=== PATIENT | male | born 1935 | race Caucasian/White ===

== ENCOUNTER 2016-11-24 09:34 | Day surgery (SDC) | payer OTHER ==
[2016-11-24] MEDS ORDERED: LIDOCAINE 1% 2 ML INJ ONE (10:04)
[2016-11-24] MEDS ORDERED: LR 1,000 ML IV ONE (10:07)
[2016-11-24] MEDS ORDERED: LIDOCAINE 1% 2 ML INJ ID PRN (10:07)
[2016-11-24 10:20] VITALS: PULSE 68
--- NOTE | 2016-11-24 11:17 | PDANEPAE ---
ANE History of Present Illness EGD/EUS ANE Past Medical History - Cardiovascular History Hx Hypertension: Yes Hx Arrhythmias: No Hx Chest Pain: No Hx Coronary Artery / Peripheral Vascular Disease: Yes Hx CHF / Valvular Disease: No Hx Palpitations: No Cardiovascular History Comment: HTN. HI 05/24/13 WITH CARDIAC STENT PLACED. 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 TOTAL PROSTATECTOMY 2006 - Liver History Hx Hepatic Disorders: No - Neurological & Psychiatric Hx Hx Neurological and Psychiatric Disorders: No - Cancer History Hx Cancer: Yes Cancer History Comment: COLON. PROSTATE - Congenital Disorder History Hx Congenital Disorders: No - GI History Hx Gastrointestinal Disorders: Yes Gastrointestinal History Comment: HX OF EGD/ EUS. HX OF JOSE ALFREDO-COLECTOMY - Other Health History Other Health History: WEARS READERS - Chronic Pain History Chronic Pain: No - Surgical History Prior Surgeries: CARDIAC STENT PLACED 2013 AFTER HI. BACK SURGERY 2011ISH. 12/04 EGD/ EUS WITH FERNANDO. RIGHT KALPA[place]. TOTAL PROSTATECTOMY 2006. JOSE ALFREDO COLECTOMY ANE Review of Systems Review of Systems: - Exercise capacity METS (RN): 4 METS ANE Patient History - Allergies Allergies/Adverse Reactions: No Known Allergies Allergy (Verified 11/03/16 12:59) - Home Medications Home medications: home medication list seen and reviewed Home Medications: Aspirin 81mg (*) 11/03/16 [Last Taken 11/17/16] Candesartan Cilexetil 11/03/16 [Last Taken 11/24/16] Herbals/Supplements -Info Only 11/03/16 [Last Taken Unknown] IBUPROFEN PRN 11/03/16 [Last Taken Unknown] Omeprazole 11/03/16 [Last Taken 11/23/16] - NPO status NPO Status: no food or drink >8 hours (pills at 0330) NPO Since - Liquids (Date): 11/24/16 NPO Since - Liquids (Time): 03:30 NPO Since - Solids (Date): 11/23/16 NPO Since - Solids (Time): 18:30 - Anes Hx Anes Hx: no prior problems - Smoking Hx Smoking Status: Former smoker (quit 50 years ago) - Alcohol Use Alcohol Use: Occasionally - Family Anes Hx Family Anes Hx: none Family Hx Anesthesia Complications: NONE ANE Labs/Vital Signs - Vital Signs Blood Pressure: 150/101 Heart Rate: 68 Respiratory Rate: 16 O2 Sat (%): 93 Height: 182.88 cm Weight: 95.254 kg ANE Physical Exam - Airway Mallampati Score: Class 2 Mouth exam: normal dental/mouth exam - Pulmonary Pulmonary: no respiratory distress - Cardiovascular Cardiovascular: regular rate and rhythym - ASA Status ASA Status: II ANE Anesthesia Plan Anesthesia Plan: GA with mask (R/B/A explained and agrees to proceed.)
--- NOTE | 2016-11-24 11:17 | PDGENHP ---
History & Physical Chief Complaint: subepithelial lesion History of Present Illness: 81 year old male presents for evaluation of subepithelial lesion and c/o of reflux Pertinent Past, Social, Family History: PMHx: HTN, CRC. SHx: prostatectomy. FMHx: No CRC Relevant Physical Exam: HEENT: anicteric. CV: RRR +s1s2. Lungs: CTAB Cardiorespiratory Assessment: ASA 2
[2016-11-24] MEDS ORDERED: INDOMETHACIN 50 MG SUPP PR PRN (11:18)
[2016-11-24] MEDS ORDERED: fentaNYL 100 MCG/2 ML INJ ONE (11:20)
[2016-11-24] MEDS ORDERED: ONDANSETRON 4 MG/2 ML VIAL ONE (11:21)
[2016-11-24] MEDS ORDERED: DEXAMETHASONE 4 MG/ML VIAL ONE (11:21)
[2016-11-24] MEDS ORDERED: LIDOCAINE 2% 100 MG/5 ML SYR ONE (11:21)
[2016-11-24] MEDS ORDERED: PROPOFOL/EMULSION 500 MG/50 ML BOTTLE IV ONE (11:21)
[2016-11-24] MEDS ORDERED: NS 500 ML IV SCH (11:30)
[2016-11-24] MEDS ORDERED: LIDOCAINE 2% JELLY 5 ML TUBE ONE (11:34)
[2016-11-24] MEDS ORDERED: ALBUTEROL 3 ML DEYVIAL IH PRN (11:38)
[2016-11-24] MEDS ORDERED: MEPERIDINE 25 MG/ML SYR IVP PRN (11:38)
[2016-11-24] MEDS ORDERED: LABETALOL HCL 50 MG/10 ML SYR IVP PRN (11:38)
[2016-11-24] MEDS ORDERED: ONDANSETRON 4 MG/2 ML VIAL IVP PRN (11:38)
[2016-11-24] MEDS ORDERED: ACETAMINOPHEN 500 MG TAB PO PRN (11:38)
[2016-11-24] MEDS ORDERED: fentaNYL 100 MCG/2 ML INJ IVP PRN (11:38)
[2016-11-24] MEDS ORDERED: DEXAMETHASONE 4 MG/ML VIAL IVP PRN (11:38)
[2016-11-24] MEDS ORDERED: LR 500 ML IV PRN (11:38)
[2016-11-24] MEDS ORDERED: NALOXONE HCL 0.4 MG/ML INJ IVP PRN (11:38)
--- NOTE | 2016-11-24 12:02 | POSTANESTH ---
Post Anesthetic Evaluation Cardiovascular Status: Normal, Stable Respiratory Status: Normal, Stable Level of Consciousness/Mental Status: Can Participate in Eval Pain Control: Adequate, Prn Tx Ordered Nausea/Vomiting Control: Adequate, Prn Tx Ordered Complications Possibly Related to Anesthesia: None Noted
[2016-11-24 12:14] VITALS: TEMP 97.7
[2016-11-24 12:16] VITALS: RESP 15
--- NOTE | 2016-11-24 12:22 | GIREPORT ---
[facility] - Endoscopy Department Patient Name: Barney Price Procedure Date: 11/24/2016 11:11 AM Patient Type: Outpatient Attending MD/ ER Physician: Ugo Reddy MD Procedure: Upper EUS Indications: Gastric mucosal mass/polyp found on endoscopy, Submucosal tumor versus extrinsic mass found on endoscopy, Heartburn Patient Profile: 81 year old male presents for evaluation of heartburn/subepithelial les ion in the antrum. Providers: Ugo Reddy MD Medicines: Monitored Anesthesia Care Complications: No immediate complications. Estimated blood loss: Minimal. Description of Procedure: After obtaining informed consent, the endoscope was passed under direct vision. Throughout the procedure, the patient's blood pressure, pulse, and oxygen saturations were monitored continuous ly. The Endoscope was introduced through the mouth, and advanced to the second part of duodenum. The was introduced through the mouth, and advanced to the second part of duodenum. The esopahgus, stomac h, and duodenum were visualized endosonographically. The upper EUS was accomplished without difficu lty. The patient tolerated the procedure well. Findings: Endoscopic Finding : Mucosal changes were found in the upper third of the esophagus consistent with an inlet patch. 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 Biopsies were taken with a cold forceps for histology. A hiatal hernia was present. Patchy mildly erythematous mucosa was found in the gastric body and in the gastric antrum. Biops ies were taken with a cold forceps for histology. A single 20 mm submucosal papule (nodule) was found in the gastric antrum. Biopsies were taken w ith a cold forceps for histology. The examined duodenum was normal. Endosonographic Finding : Pancreatic parenchymal abnormalities were noted in the entire pancreas. These consisted of hyperechoic foci. There was no sign of significant endosonographic abnormality in the common bile duct. An oval intramural (subepithelial) lesion was found in the antrum of the stomach. The lesion was hypoechoic. Sonographically, the lesion appeared to originate from the muscularis propria (Layer 4). The lesion also measured 18 mm by 8 (depth) mm in diameter. The outer endosonographic borders we re well defined. There were several septations and the appearance was unchanged from previous EUS i n 2011. There was no sign of significant endosonographic abnormality in the entire examined liver. No lymphadenopathy seen. Estimated Blood Loss: Estimated blood loss was minimal. Post Op Diagnosis: - Inlet patch. - Z-line irregular, at the gastroesophageal junction. Biopsied. - Hiatal hernia. - Erythematous mucosa in the gastric body and antrum. Biopsied. - A single submucosal papule (nodule) found in the stomach. Biopsied. - Normal examined duodenum. - Pancreatic parenchymal abnormalities consisting of hyperechoic foci were noted in the entire pancreas. - There was no sign of significant pathology in the common bile duct. - An intramural (subepithelial) lesion was found in the antrum of the stomach. The lesion appear ed to originate from within the muscularis propria (Layer 4). It is unchanged from previous EUS in 201 2. - There was no evidence of significant pathology in the entire examined liver. Recommendation: - Discharge patient to home (with escort). - Follow an antireflux regimen. - Use a proton pump inhibitor PO daily. - Await path results. - No more surveillance of subepithelial lesion noted. - Thank you for allowing me to participate in the care of your patient. Attending Participation: I personally performed the entire procedure. Ugo Reddy MD Ugo Reddy MD 11/24/2016 12:22:01 PM Number of Addenda: 0 Note Initiated On: 11/24/2016 11:11 AM [email or web address]
[2016-11-24 13:06] VITALS: BP 151/72; O2SAT 92
== END 2016-11-24 13:25 | disposition home or self-care (01) ==
LOC: FSGY 09:34
PROVIDERS: ATTEND Internal Medicine Gastroenterology
PROC: 0DB58ZX Excision of Esophagus, Via Natural or Artificial Opening Endoscopic, Diagnostic (ICD-10-PCS; principal; 2016-11-24 11:00)
PROC: 0DB68ZX Excision of Stomach, Via Natural or Artificial Opening Endoscopic, Diagnostic (ICD-10-PCS; principal; 2016-11-24 11:00)
DX: K29.50 Unspecified chronic gastritis without bleeding (principal); K44.9 Diaphragmatic hernia without obstruction or gangrene; K22.70 Barrett's esophagus without dysplasia; I10 Essential (primary) hypertension; I25.2 Old myocardial infarction; Z95.5 Presence of coronary angioplasty implant and graft; Z47.33 Aftercare following explantation of knee joint prosthesis; Z85.038 Personal history of other malignant neoplasm of large intestine; Z85.46 Personal history of malignant neoplasm of prostate; Z87.891 Personal history of nicotine dependence
CPT/HCPCS: J1100; J2001; J2405; J2704; J3010